=== PATIENT | male | born 1940 | race Caucasian/White ===

== ENCOUNTER 2023-06-03 06:25 | Inpatient (IN) | payer MEDICARE, BC ==
[2023-06-03] MEDS ORDERED: Sodium Chloride 0.9% 10 ML Syringe FLUSH PRN (06:47)
[2023-06-03] MEDS ORDERED: guaiFENesin 100 MG/5 ML Soln 10 ML UD Cup PO PRN (09:48)
[2023-06-03] MEDS: Sodium Chloride 0.9% 1,000 ML IV SCH ×2 (09:57→22:52)
[2023-06-03] MEDS: Atropine 1% Ophth Soln 5 ML Bottle SL SCH ×8 (10:04→22:53)
[2023-06-04] MEDS: Atropine 1% Ophth Soln 5 ML Bottle SL SCH ×6 (01:07→08:17)
[2023-06-04] MEDS: LORazepam 2 MG/ML SDV IVPUSH PRN ×2 (01:38→09:52)
[2023-06-04] MEDS: Morphine Oral Concentrate 20 MG/ML 30 ML Bottle PO PRN ×8 (01:39→18:22)
[2023-06-04 08:15] LABS: APPEARANCE,URINE CLEAR; BILIRUBIN,URINE NEGATIVE (NEGATIVE); COLOR,URINE DARK YELLOW; GLUCOSE,URINE NEGATIVE (NEGATIVE); KETONES,URINE NEGATIVE (NEGATIVE); LEUKOCYTE ESTERASE,URINE NEGATIVE (NEGATIVE); NITRITE,URINE NEGATIVE (NEGATIVE); OCCULT BLOOD,URINE NEGATIVE (NEGATIVE); PH,URINE 5.5 (5.0-9.0); PROTEIN,URINE 30 mg/dL (NEGATIVE); UROBILINOGEN,URINE 0.2 E.U./dL (0.2-1.0)
[2023-06-04 08:36] LABS: EPITHELIAL CELLS,URINE NOT SEEN /LPF; RBC,URINE 0-5 /HPF; WBC,URINE 0-5 /HPF
[2023-06-04 08:37] LABS: BACTERIA,URINE FEW /HPF (NONE TO FEW); OTHER CRYSTALS,URINE MODERATE /HPF
[2023-06-04] MEDS ORDERED: Scopolamine 1.5 MG Transdermal Patch TRDERM SCH (10:00)
[2023-06-04] MEDS ORDERED: LORazepam 2 MG/ML SDV IVPUSH PRN (16:00)
== END 2023-06-04 23:00 | disposition expired | DRG 951 ==
LOC: LL.ED 06:25 → OBSVTOIN 07:00 → LL.MS 07:00 → UNDOADMOB 07:00
PROVIDERS: ADMIT Emergency Medicine; ATTEND Emergency Medicine
DX: Z51.5 Encounter for palliative care (principal); C34.91 Malignant neoplasm of unspecified part of right bronchus or lung; R06.03 Acute respiratory distress; E86.0 Dehydration; Z66 Do not resuscitate; E03.9 Hypothyroidism, unspecified; E78.00 Pure hypercholesterolemia, unspecified; F41.9 Anxiety disorder, unspecified; Z88.0 Allergy status to penicillin; F17.210 Nicotine dependence, cigarettes, uncomplicated; Z79.899 Other long term (current) drug therapy
CPT/HCPCS: 71045; 81001; 99285; A9270-GY; J2060; J3490; J7030